=== PATIENT | male | born 1990 | race American Indian/Alaskan Native ===

== ENCOUNTER 2017-09-25 17:51 | Emergency (ER) | payer BC ==
[2017-09-26 00:34] LABS: Bacteria,Urine 2+ /HPF (Negative); Bilirubin,Urine NEG (Negative); Blood,Urine MOD (Negative); Color,Urine Yellow (Yellow); Mucus,Urine FEW /HPF; Nitrite,Urine NEG (Negative)
[2017-09-26 00:35] LABS: RBC,Urine > 182.0 /HPF (0.0-6.0); WBC,Urine > 182.0 /HPF (0.0-6.0)
[2017-09-26] MEDS ORDERED: ROCEPHIN IM ONE (00:41)
[2017-09-26] MEDS ORDERED: ZITHROMAX PO ONE (00:41)
[2017-09-26] MEDS ORDERED: XYLOCAINE 1% MPF 5 mL INFILTRATI ONE (00:41)
--- NOTE | 2017-09-26 00:51 | Emergency Department Report ---
ED Male HPI - General Chief complaint: Urogenital-Male Stated complaint: BLOOD IN URINE Time Seen by Provider: 09/26/17 00:00 Source: patient Mode of arrival: Ambulatory Limitations: No Limitations - History of Present Illness Initial comments: This is a 27-year-old male nontoxic, well nourished in appearance, no acute signs of distress presents to the ED with c/o of dysuria, polyuria, hematuria, and penile discharge 1 week. Patient stated he had a sexual intercourse 3 weeks ago and developed the symptoms last week. Patient describes penile discharge as yellow/white in color. Patient denies any testicular swelling, testicular pain, penile lesions or ulcers, fever, chills, back pain, abdominal pain, headache, stiff neck, chest pain, short of breath, numbness or tingling. Patient denies any nausea or vomiting. Patient denies any allergies or past medical history. MD Complaint: penile discharge, dysuria -: week(s) (1) Location: penis Radiation: none Severity: mild Severity scale (0 -10): 8 Quality: burning Consistency: constant Improves with: none Worsens with: urination discharge, blood in urine, dysuria. denies: swelling, mass, rash, urinary retention, fever, nausea/vomiting, incontinence - Related Data Sexually active: No Previous Rx's Medication Instructions Recorded Last Taken Type Sulfamethoxazole/Trimethoprim 1 each PO BID #20 tablet 09/26/17 Unknown Rx [Bactrim DS TAB] Allergies Allergy/AdvReac Type Severity Reaction Status Date / Time No Known Allergies Allergy Unverified 09/25/17 18:51 ED Review of Systems ROS: Stated complaint: BLOOD IN URINE Other details as noted in HPI Constitutional: denies: chills, fever Eyes: denies: eye pain, eye discharge, vision change ENT: denies: ear pain, throat pain Respiratory: denies: cough, shortness of breath, wheezing Cardiovascular: denies: chest pain, palpitations Endocrine: no symptoms reported Gastrointestinal: denies: abdominal pain, nausea, diarrhea Genitourinary: urgency, dysuria, frequency, hematuria, discharge Musculoskeletal: denies: back pain, joint swelling, arthralgia Skin: denies: rash, lesions Neurological: denies: headache, weakness, paresthesias Psychiatric: denies: anxiety, depression Hematological/Lymphatic: denies: easy bleeding, easy bruising ED Past Medical Hx - Past Medical History Previous Medical History?: No - Surgical History Past Surgical History?: No - Social History Smoking Status: Never Smoker Substance Use Type: Marijuana - Medications Home Medications: Home Medications Medication Instructions Recorded Confirmed Last Taken Type Sulfamethoxazole/Trimethoprim 1 each PO BID #20 tablet 09/26/17 Unknown Rx [Bactrim DS TAB] ED Physical Exam - General Limitations: No Limitations General appearance: alert, in no apparent distress - Head Head exam: Present: atraumatic, normocephalic - Eye Eye exam: Present: normal appearance - ENT ENT exam: Present: mucous membranes moist - Neck Neck exam: Present: normal inspection - Respiratory Respiratory exam: Present: normal lung sounds bilaterally. Absent: respiratory distress, wheezes, rales, rhonchi, stridor, chest wall tenderness, accessory muscle use, decreased breath sounds, prolonged expiratory - Cardiovascular Cardiovascular Exam: Present: regular rate, normal rhythm, normal heart sounds. Absent: bradycardia, tachycardia, irregular rhythm, systolic murmur, diastolic murmur, rubs, gallop - GI/Abdominal GI/Abdominal exam: Present: soft, normal bowel sounds. Absent: distended, tenderness, guarding, rebound, rigid, diminished bowel sounds - Rectal Rectal exam: Present: deferred - exam: Present: normal inspection, urethral discharge. Absent: testicular tenderness, scrotal swelling, vertical testicular lie External exam: Present: normal external exam. Absent: erythema, swelling, lesions, lacerations, ecchymosis, bleeding - Extremities Exam Extremities exam: Present: normal inspection, full ROM, normal capillary refill - Back Exam Back exam: Present: normal inspection, full ROM. Absent: tenderness, CVA tenderness (R), CVA tenderness (L), muscle spasm, paraspinal tenderness, vertebral tenderness, rash noted - Neurological Exam Neurological exam: Present: alert, oriented X3, CN II-XII intact, normal gait, reflexes normal - Psychiatric Psychiatric exam: Present: normal affect, normal mood - Skin Skin exam: Present: warm, dry, intact, normal color. Absent: rash ED Course Vital Signs 09/25/17 18:47 Temperature 98.1 F Pulse Rate 75 Respiratory 20 Rate Blood Pressure 132/86 O2 Sat by Pulse 100 Oximetry - Reevaluation(s) Reevaluation #1: 09/26/17 00:51 Patient is speaking in full sentences with no signs of distress noted. ED Medical Decision Making - Medical Decision Making This is a 27-year-old male that presents with possible STD exposure and UTI. Patient is stable and was examined by me. UA obtained which indicates UTI. Gonorrhea chlamydia is pending. Patient received 1 g of Rocephin and 1 g of azithromycin in the ED as patient stated he wanted to be treated empirically for gonorrhea and chlamydia and due to patient having symptoms of UTI with urinary abnormal patient received 1 g of Rocephin. There is no CVA tenderness. Patient was instructed to return in 3 days to obtain results of gonorrhea and chlamydia. Patient was instructed Follow-up with a primary care doctor in 3-5 days or if symptoms worsen and continue return to emergency room as soon as possible. At time time of discharge, the patient does not seem toxic or ill in appearance. No acute signs of distress noted. Patient agrees to discharge treatment plan of care. No further questions noted by the patient. Critical care attestation.: If time is entered above; I have spent that time in minutes in the direct care of this critically ill patient, excluding procedure time. ED Disposition Clinical Impression: Possible exposure to STD UTI (urinary tract infection) Qualifiers: Urinary tract infection type: site unspecified Hematuria presence: with hematuria Qualified Code(s): N39.0 - Urinary tract infection, site not specified ; R31.9 - Hematuria, unspecified; R31.9 - Hematuria, unspecified Disposition: DC-01 TO HOME OR SELFCARE Is pt being admited?: No Does the pt Need Aspirin: No Condition: Stable Instructions: Safe Sex (ED), Sulfamethoxazole/Trimethoprim (By mouth), Urinary Tract Infection in Men (ED) Additional Instructions: Follow-up with a primary care doctor in 3-5 days or if symptoms worsen and continue return to emergency room as soon as possible. Return in 3 days to obtain results of gonorrhea and chlamydia. Prescriptions: Sulfamethoxazole/Trimethoprim [Bactrim DS TAB] 1 each PO BID #20 tablet Referrals: NICKY MCGHEE MD [Primary Care Provider] - 3-5 Days PRIMARY CARE, [Referring] - 3-5 Days [facility] [place] [Outside] - 3-5 Days [facility] [Outside] - 3-5 Days Forms: Work/School Release Form(ED)
[2017-09-26 01:50] VITALS: BP 127/81
== END 2017-09-26 01:52 | disposition home or self-care (01) ==
LOC: ED 17:51
DX: N39.0 Urinary tract infection, site not specified (principal); R31.9 Hematuria, unspecified; F12.10 Cannabis abuse, uncomplicated
CPT/HCPCS: 81001; 87086; 87591; 96372; 99283; J0696

== ENCOUNTER 2020-01-11 23:01 | Emergency (ER) | payer BC ==
[2020-01-12] MEDS ORDERED: LIDOCAINE-MPF (1%) 10 MG/1 ML VIAL 5 ML INFILTRATI ONE (00:41)
[2020-01-12] MEDS ORDERED: PHENAZOPYRIDINE 200 MG TAB PO ONE (00:41)
[2020-01-12 01:37] VITALS: BP 135/82
--- NOTE | 2020-01-12 01:40 | Emergency Department Report ---
ED Male HPI - General Chief complaint: Urogenital-Male Stated complaint: GENITAL PAIN Source: patient Mode of arrival: Ambulatory Limitations: No Limitations - History of Present Illness Initial comments: Patient is a 29-year-old -[place] male with no past medical history presented to the ED with dysuria, penile discharge and urinary frequency and urgency for the last 4 days. Patient stated that last time she had sexual intercourse was over 1 week ago. Patient states that the sexual intercourse was protected with a condom. Patient denies testicular pain, nausea, vomiting, hematuria, traumatic injury, scrotal swelling, abdominal pain, diarrhea, low back pain, dizziness or cough and sore throat. MD Complaint: penile discharge, dysuria -: days(s) (4) Location: penis Radiation: none Severity: severe Severity scale (0 -10): 7 Quality: burning, sharp Consistency: constant Improves with: none Worsens with: urination denies other symptoms, discharge, dysuria. denies: swelling, mass, rash, urinary retention, blood in urine, fever, nausea/vomiting, incontinence - Related Data Sexually active: Yes Previous Rx's Medication Instructions Recorded Last Taken Type Sulfamethoxazole/Trimethoprim 1 each PO BID #20 tablet 09/26/17 Unknown Rx [Bactrim DS TAB] Doxycycline Hyclate [Doxycycline 100 mg PO Q12HR #20 tab 01/12/20 Unknown Rx Hyclate TAB] Phenazopyridine [Pyridium] 200 mg PO Q8H #21 tab 01/12/20 Unknown Rx metroNIDAZOLE [Flagyl] 500 mg PO Q12HR #20 tab 01/12/20 Unknown Rx Allergies Allergy/AdvReac Type Severity Reaction Status Date / Time No Known Allergies Allergy Unverified 09/25/17 18:51 ED Review of Systems ROS: Stated complaint: GENITAL PAIN Other details as noted in HPI Constitutional: denies: chills, fever Eyes: denies: eye pain, eye discharge, vision change ENT: denies: ear pain, throat pain Respiratory: denies: cough, shortness of breath, wheezing Cardiovascular: denies: chest pain, palpitations Endocrine: no symptoms reported Gastrointestinal: denies: abdominal pain, nausea, diarrhea Genitourinary: urgency, dysuria, frequency, discharge Musculoskeletal: denies: back pain, joint swelling, arthralgia Skin: denies: rash, lesions Neurological: denies: headache, weakness, paresthesias Psychiatric: denies: anxiety, depression Hematological/Lymphatic: denies: easy bleeding, easy bruising ED Past Medical Hx - Past Medical History Previous Medical History?: No - Surgical History Past Surgical History?: No - Social History Smoking Status: Never Smoker Substance Use Type: None - Medications Home Medications: Home Medications Medication Instructions Recorded Confirmed Last Taken Type Sulfamethoxazole/Trimethoprim 1 each PO BID #20 tablet 09/26/17 Unknown Rx [Bactrim DS TAB] Doxycycline Hyclate [Doxycycline 100 mg PO Q12HR #20 tab 01/12/20 Unknown Rx Hyclate TAB] Phenazopyridine [Pyridium] 200 mg PO Q8H #21 tab 01/12/20 Unknown Rx metroNIDAZOLE [Flagyl] 500 mg PO Q12HR #20 tab 01/12/20 Unknown Rx ED Physical Exam - General Limitations: No Limitations General appearance: alert, in no apparent distress - Head Head exam: Present: atraumatic, normocephalic, normal inspection - Eye Eye exam: Present: normal appearance, PERRL, EOMI Pupils: Present: normal accommodation - ENT ENT exam: Present: normal exam, normal orophraynx, mucous membranes moist, TM's normal bilaterally, normal external ear exam - Neck Neck exam: Present: normal inspection, full ROM - Respiratory Respiratory exam: Present: normal lung sounds bilaterally. Absent: respiratory distress, wheezes, rales, rhonchi, stridor, chest wall tenderness, accessory muscle use, decreased breath sounds, prolonged expiratory - Cardiovascular Cardiovascular Exam: Present: regular rate, normal rhythm, normal heart sounds. Absent: systolic murmur, diastolic murmur, rubs, gallop - GI/Abdominal GI/Abdominal exam: Present: soft, normal bowel sounds. Absent: tenderness, guarding, hyperactive bowel sounds, hypoactive bowel sounds - External exam: Present: other (Genital exam deferred, patient declined) - Extremities Exam Extremities exam: Present: normal inspection - Back Exam Back exam: Present: normal inspection, full ROM. Absent: tenderness, CVA tenderness (R), muscle spasm, paraspinal tenderness - Neurological Exam Neurological exam: Present: alert, oriented X3, CN II-XII intact, normal gait, reflexes normal - Psychiatric Psychiatric exam: Present: normal affect, normal mood - Skin Skin exam: Present: warm, dry, intact, normal color. Absent: rash ED Medical Decision Making - Medical Decision Making This is a 29-year-old -[place] male with no past medical history presented to the ED with dysuria, penile discharge and urinary frequency and urgency for the last 4 days. Patient stated that last time she had sexual intercourse was over 1 week ago. Patient states that the sexual intercourse was protected with a condom. In the ED, patient is alert and oriented x3 and is not in distress. Patient was advised that the STD is not an emergency to be treated in the ED. Patient was advised to go to the health department for further evaluation and treatment of the STD since his condition and complaint does not constitute an emergency to be treated at the ED. Patient opted to pay the cost of the treatment in the ED instead of going to the health department. Patient was therefore given Rocephin 250 mg intramuscular injection for gonorrhea and discharged home on doxycycline and Flagyl. Patient was advised to return to the ED immediately if symptoms get worse. Patient was also advised to have his sexual partner tested and treated at the health department. - Differential Diagnosis Gonorrhea; Chlamydia; Trichomonas; UTI Critical care attestation.: If time is entered above; I have spent that time in minutes in the direct care of this critically ill patient, excluding procedure time. ED Disposition Clinical Impression: Urethritis, unspecified, STD (sexually transmitted disease) Disposition: DC-01 TO HOME OR SELFCARE Is pt being admited?: No Does the pt Need Aspirin: No Condition: Stable Instructions: Nonspecific Urethritis in Men (ED), Sexually Transmitted Diseases (ED) Additional Instructions: Take medication with food, drink plenty of fluids and follow-up with [facility] or call public health department for further STD testing like HIV. Return to the ED immediately if symptoms get worse. Ensure that your sexual partner gets treated as well at the health department. Prescriptions: Doxycycline Hyclate [Doxycycline Hyclate TAB] 100 mg PO Q12HR #20 tab metroNIDAZOLE [Flagyl] 500 mg PO Q12HR #20 tab Phenazopyridine [Pyridium] 200 mg PO Q8H #21 tab Referrals: [facility] [Outside] - 3-5 Days Forms: STI Treatment and Prevention Time of Disposition: 01:38 Print Language: GRENADIAN
== END 2020-01-12 01:55 | disposition home or self-care (01) ==
LOC: ED 23:01
DX: N34.2 Other urethritis (principal); A63.8 Other specified predominantly sexually transmitted diseases; Z79.899 Other long term (current) drug therapy
CPT/HCPCS: 96372; 99282; J0696